=== PATIENT | male | born 1955 | race Caucasian/White ===

== ENCOUNTER 2022-01-28 14:34 | Observation (INO) | payer MEDICARE, OTHER ==
[2022-01-25 09:36] LABS: BASOPHILS # (AUTO) 0.1 (0.0-0.1); BASOPHILS % 1.1 % (0.0-1.0); EOSINOPHILS # (AUTO) 0.2 (0.0-0.4); EOSINOPHILS % 2.3 % (0.0-6.0); HEMATOCRIT 44.8 % (38.2-49.6); HEMOGLOBIN 14.5 g/dL (14.0-18.0); LYMPHOCYTES # (AUTO) 1.3 (1.0-3.2); MEAN CORPUSCULAR HEMOGLOBIN 28.5 pg (28-32); MEAN CORPUSCULAR HGB CONC 32.4 g/dL (31-35); MEAN CORPUSCULAR VOLUME 88.2 fL (81-99); MONOCYTES # (AUTO) 0.5 (0.2-0.8); MONOCYTES % 7.8 % (4.4-11.3); NEUTROPHILS # (AUTO) 4.5 (2.1-6.9); NEUTROPHILS % 68.6 % (38.7-80.0); PLATELET COUNT 340 x10e3/uL (140-360); RED BLOOD COUNT 5.08 x10e6/uL (4.3-5.7); RED CELL DISTRIBUTION WIDTH 15.8 % (11.7-14.4)
[2022-01-25 09:49] LABS: INR 0.94; PROTHROMBIN TIME 13.4 seconds (11.9-14.5)
[2022-01-25 09:50] LABS: PARTIAL THROMBOPLASTIN TIME 30.9 seconds (23.8-35.5)
[2022-01-25 09:52] LABS: ANION GAP 13.7 mmol/L (8-16); CALCIUM 9.5 mg/dL (8.4-10.2); CREATININE, SERUM 1.07 mg/dL (0.72-1.25); POTASSIUM 4.7 mmol/L (3.5-5.1)
[~2022-01-28] VITALS: Ht 182.9 cm; Wt 90.7 kg
[~2022-01-28 14:34] MED LIST: ACETAMINOPHEN 1000 MG/100 ML IV ONE; ACETAMINOPHEN 325 MG TAB PO PRN; ASPIRIN81 MG PO; AVODART0.5 MG PO; BREO ELLIPTA 11 EACH INH; CARISOPRODOL 350 MG TAB PO PRN; CEPACOL SORE THROAT LOZENGES PO PRN; CHLORDIAZEPOXI1 EACH PO; CHLORDIAZEPOXIDE/CLIDINIUM 1 CAP PO PRN; CIALIS2.5 MG PO; CRESTOR10 MG PO; DEXAMETHASONE SOD PHOS INJ 4 MG/ML SDV ONE; ECHINACEA PO; FENTANYL CITRATE/PF 100MCG/2 ML INJ ONE; FLOMAX0.4 MG PO; HYDROCODON-ACE1 EA12 PO; HYDROCODON-ACE1 EAC9 PO; HYDROCODONE/APAP 10MG-325MG TAB PO PRN; HYDROMORPHONE 2MG/ML 2 MG/ML ML IV PRN; HYDROXYZIN10 MG/5 ML PO; HYDROXYZINE HCL 25 MG PO SCH; HYOSCYAMINE 0.125 MG TAB PO PRN; KETOROLAC TROMETHAMINE 30 MG/ML VIAL ONE; LEVSIN0.125 MG PO; LIDOCAINE 2% /EPINEPHRINE 20 ML SDV INJ ONE; LIDOCAINE HCL (LTA) 4 ML SOLN ONE; LIDOCAINE HCL 2% LOCAL INJ 5 ML SDV VIAL INJ ONE; LYRICA100 MG PO; MAGNESIUM PO; MAGNESIUM/ALUMINUM/SIMETHICONE 30 ML UDC PO PRN; MELOXICAM7.5 MG PO; MIDAZOLAM HCL 2 MG/2 ML VIAL ONE; MORPHINE SULFATE 5 MG/ML VIAL IM PRN; ONDANSETRON HCL INJ 2MG/ML 2ML 2 MG/ML VIAL IV PRN; ONDANSETRON HCL INJ 2MG/ML 2ML 2 MG/ML VIAL ONE; OXYCODONE/ACETAMINOPHEN 5-325 1 EACH TABLET PO PRN; PANTOPRAZOLE SO20 MG PO; POTASSIUM PO; POVIDONE IODINE 0.05% 0.05 % ML PO ONE; PROMETHAZINE HCL (IM) 25 MG/ML VIAL IM PRN; PROPOFOL IV EMULSION 10 MG/ML 20 ML VIAL ONE; PROPRANOLOL HCL 10 MG TAB PO SCH; PROPRANOLOL HCL10 MG PO; ROCURONIUM BROMIDE 10 MG/ML 5ML VIAL IV ONE; SEVOFLURANE INHAL SOLN 250 ML PEN BTL ONE; SUGAMMADEX SODIUM 200 MG/2 ML VIAL IV ONE; TESTOSTERO100 MG/1 M INJ; THROMBIN FOR SOLN 5,000 UNIT VIAL ONE; TIZANIDINE HCL 4 MG TAB PO PRN; TIZANIDINE HCL4 M1 PO; ULTRAM 50MG50 MG PO; VITAMIN D PO; VITAMIN E1000 UNI1 PO; Vancomycin IV 1 GM VIAL ONE; ZINC PO; ZOLPIDEM TARTRATE 5 MG TAB PO PRN
[2022-01-28] MEDS: LACTATED RINGER'S 1,000 ML IV SCH (15:10)
[2022-01-28 15:24] VITALS: BP 134/72
[2022-01-28 15:28] VITALS: BP 134/72
[2022-01-28] MEDS ORDERED: HYDROXYZINE HCL 25 MG TAB PO PRN (15:30)
[2022-01-28 15:44] VITALS: BP 134/74
[2022-01-28 15:59] VITALS: BP 134/74
[2022-01-28] MEDS: PREGABALIN 50 MG CAP PO SCH (16:49)
[2022-01-28] MEDS: TRAMADOL HCL 50 MG TAB PO SCH (16:49)
[2022-01-28 20:00] VITALS: BP 128/74
[2022-01-28 21:30] VITALS: BP 128/74
[2022-01-29] VITALS: BP 135/76
[2022-01-29] MEDS ORDERED: Morphine 2mg Syringe 2 MG/ML SYR IM PRN (01:00)
[2022-01-29] MEDS: LACTATED RINGER'S 1,000 ML IV SCH ×2 (01:22→05:10)
[2022-01-29 04:00] VITALS: BP 129/70
[2022-01-29] MEDS ORDERED: PANTOPRAZOLE SOD 40 MG TABEC PO SCH (07:30)
[2022-01-29] MEDS: TRAMADOL HCL 50 MG TAB PO SCH (08:05)
[2022-01-29] MEDS: PREGABALIN 50 MG CAP PO SCH (08:05)
[2022-01-29 08:58] VITALS: BP 119/94
[2022-01-29] MEDS ORDERED: NON-FORMULARY MEDICATION (Pantoprazole Sodium 40 MG) PO SCH (09:00)
[2022-01-29] MEDS ORDERED: DUTASTERIDE 0.5 MG CAP PO SCH (09:00)
[2022-01-29] MEDS ORDERED: MELOXICAM 7.5 MG TAB PO SCH (09:00)
[2022-01-29] MEDS ORDERED: BREO ELLIPTA INH SCH (09:00)
[2022-01-29] MEDS ORDERED: TAMSULOSIN HCL 0.4 MG CAP PO SCH (09:00)
[2022-01-29 09:13] VITALS: BP 119/94
[2022-01-29] MEDS ORDERED: SIMVASTATIN 20 MG TAB PO SCH (21:00)
== END 2022-01-29 10:09 | disposition home or self-care (01) ==
LOC: OR 14:34 → PACU V 14:40 → MED/SURG2 15:04
PROVIDERS: ADMIT Neurological Surgery; ATTEND Neurological Surgery
DX: M50.122 Cervical disc disorder at C5-C6 level with radiculopathy (principal); Z01.818 Encounter for other preprocedural examination; Z20.822 Contact with and (suspected) exposure to COVID-19; J44.9 Chronic obstructive pulmonary disease, unspecified; E78.5 Hyperlipidemia, unspecified; K21.9 Gastro-esophageal reflux disease without esophagitis; M19.91 Primary osteoarthritis, unspecified site
CPT/HCPCS: 0223U; 20931; 22551; 22845; 36415; 71046; 72040; 76000; 80048; 85025; 85610; 85730; 86850; 86900; 88304; 88311; 93005; C1713 ×3; G0378 ×2; J0131; J0690 ×2; J1100; J1885; J2001 ×2; J2250; J2270; J2405 ×2; J2704; J3010; J3370; J7121 ×2; S0164

== ENCOUNTER → 2022-10-13 | Day surgery (SDC) | payer MEDICARE, OTHER ==
[~2022-10-13] MED LIST changes: -ACETAMINOPHEN 1000 MG/100 ML IV ONE; -ACETAMINOPHEN 325 MG TAB PO PRN; +ALBUTEROL SULFATE HFA 8GM INHALATION AEROSOL INH ONE; -CARISOPRODOL 350 MG TAB PO PRN; -CEPACOL SORE THROAT LOZENGES PO PRN; -CHLORDIAZEPOXIDE/CLIDINIUM 1 CAP PO PRN; -DEXAMETHASONE SOD PHOS INJ 4 MG/ML SDV ONE; -HYDROCODONE/APAP 10MG-325MG TAB PO PRN; -HYDROMORPHONE 2MG/ML 2 MG/ML ML IV PRN; -HYDROXYZINE HCL 25 MG PO SCH; -HYOSCYAMINE 0.125 MG TAB PO PRN; -KETOROLAC TROMETHAMINE 30 MG/ML VIAL ONE; +LACTATED RINGER'S 1,000 ML ONE; -LIDOCAINE 2% /EPINEPHRINE 20 ML SDV INJ ONE; -LIDOCAINE HCL (LTA) 4 ML SOLN ONE; -MAGNESIUM/ALUMINUM/SIMETHICONE 30 ML UDC PO PRN; -MIDAZOLAM HCL 2 MG/2 ML VIAL ONE; -MORPHINE SULFATE 5 MG/ML VIAL IM PRN; -ONDANSETRON HCL INJ 2MG/ML 2ML 2 MG/ML VIAL IV PRN; -ONDANSETRON HCL INJ 2MG/ML 2ML 2 MG/ML VIAL ONE; -OXYCODONE/ACETAMINOPHEN 5-325 1 EACH TABLET PO PRN; -POVIDONE IODINE 0.05% 0.05 % ML PO ONE; -PROMETHAZINE HCL (IM) 25 MG/ML VIAL IM PRN; -PROPRANOLOL HCL 10 MG TAB PO SCH; -ROCURONIUM BROMIDE 10 MG/ML 5ML VIAL IV ONE; -SEVOFLURANE INHAL SOLN 250 ML PEN BTL ONE; +SUCRALFATE1 GM PO; -SUGAMMADEX SODIUM 200 MG/2 ML VIAL IV ONE; -THROMBIN FOR SOLN 5,000 UNIT VIAL ONE; -TIZANIDINE HCL 4 MG TAB PO PRN; -Vancomycin IV 1 GM VIAL ONE; -ZOLPIDEM TARTRATE 5 MG TAB PO PRN; +[UNRECOGNIZED DRUG - OTHER] PO
[2022-10-13 12:54] VITALS: TEMP 97
[2022-10-13 13:25] VITALS: BP 128/80; PULSE 51; RESP 16; O2SAT 97
== END | disposition home or self-care (01) ==
LOC: OR 09:26
PROVIDERS: ATTEND Internal Medicine Gastroenterology
DX: K29.50 Unspecified chronic gastritis without bleeding (principal); K21.00 Gastro-esophageal reflux disease with esophagitis, without bleeding; K44.9 Diaphragmatic hernia without obstruction or gangrene; R19.7 Diarrhea, unspecified; J45.909 Unspecified asthma, uncomplicated; E29.1 Testicular hypofunction; Z01.810 Encounter for preprocedural cardiovascular examination; Z79.82 Long term (current) use of aspirin; Z79.1 Long term (current) use of non-steroidal anti-inflammatories (NSAID); Z79.899 Other long term (current) drug therapy; Z87.891 Personal history of nicotine dependence
CPT/HCPCS: 43239; 88305; 88342; 93005; J2001; J2704; J3010; J7121